=== PATIENT | female | born 1995 | race Caucasian/White ===

== ENCOUNTER 2018-01-28 16:41 | Outpatient (CLI) | payer OTHER ==
[2018-01-28 17:08] LABS: BASOPHILS % (AUTO) 0.6 %; EOSINOPHILS # (AUTO) 0.1 10^3/uL (0.0-0.7); EOSINOPHILS % (AUTO) 1.4 %; HGB - HEMOGLOBIN 14.5 g/dL (12.0-16.0); LYMPHOCYTES # (AUTO) 2.3 10^3/uL (1.5-3.5); LYMPHOCYTES % (AUTO) 32.8 %; MEAN CORPUSCULAR HEMOGLOBIN 30.4 pg (27.0-31.0); MEAN CORPUSCULAR HGB CONC 33.6 g/dL (32.0-36.0); MEAN CORPUSCULAR VOLUME 90.4 fL (81.0-99.0); MEAN PLATELET VOLUME 8.8 fL (7.9-10.8); MONOCYTES # (AUTO) 0.8 10^3/uL (0.0-1.0); MONOCYTES % (AUTO) 11.2 %; NEUTROPHILS # (AUTO) 3.9 10^3/uL (1.5-6.6); PLT - PLATELET COUNT 203 10^3/uL (130-450); RED BLOOD COUNT 4.79 10^6/uL (4.20-5.40); RED CELL DISTRIBUTION WIDTH 12.3 % (12.0-15.0); WHITE BLOOD COUNT 7.2 x10^3/uL (4.8-10.8)
[2018-01-28 17:33] LABS: ALBUMIN 4.3 g/dL (3.2-5.5); ALBUMIN/GLOBULIN RATIO 1.2 (1.0-2.2); ALKALINE PHOSPHATASE 52 IU/L (42-121); ALT ALANINE AMINOTRANSFERASE 14 IU/L (10-60); AST ASPARTATE AMINOTRANSFERASE 18 IU/L (10-42); BILIRUBIN,TOTAL 1.2 mg/dL (0.2-1.0); BUN - BLOOD UREA NITROGEN 14 mg/dL (6-20); CALCIUM 9.2 mg/dL (8.5-10.3); CARBON DIOXIDE - CO2 26 mmol/L (21-32); CHLORIDE 101 mmol/L (101-111); CREATININE 0.8 mg/dL (0.4-1.0); GFR - MDRD 89 (>89); GLUCOSE 92 mg/dL (70-100); PHOSPHORUS 3.8 mg/dL (2.5-4.6); SODIUM 134 mmol/L (135-145); TOTAL PROTEIN 7.9 g/dL (6.7-8.2)
== END 2018-01-28 16:42 | disposition home or self-care (01) ==
LOC: LAB 16:41
PROVIDERS: ATTEND Physician Assistant
DX: R00.2 Palpitations (principal)
CPT/HCPCS: 36415; 80053; 83735; 84100; 84443; 85025

== ENCOUNTER 2018-08-26 16:35 | Outpatient (CLI) | payer OTHER ==
[2018-08-26 17:05] LABS: ALBUMIN 4.3 g/dL (3.2-5.5); ALBUMIN/GLOBULIN RATIO 1.1 (1.0-2.2); CALCIUM 9.6 mg/dL (8.5-10.3); CREATININE 0.8 mg/dL (0.4-1.0); TOTAL PROTEIN 8.1 g/dL (6.7-8.2)
== END 2018-08-26 16:36 | disposition home or self-care (01) ==
LOC: LAB 16:35
PROVIDERS: ATTEND Physician Assistant
DX: Z79.899 Other long term (current) drug therapy (principal)
CPT/HCPCS: 36415; 80053

== ENCOUNTER 2018-10-07 16:44 | Outpatient (CLI) | payer OTHER ==
[2018-10-07 17:04] LABS: CALCIUM 9.7 mg/dL (8.5-10.3); CREATININE 0.8 mg/dL (0.4-1.0)
== END 2018-10-07 16:45 | disposition home or self-care (01) ==
LOC: LAB 16:44
PROVIDERS: ATTEND Physician Assistant
DX: Z79.899 Other long term (current) drug therapy (principal)
CPT/HCPCS: 36415; 80048

== ENCOUNTER 2018-10-28 13:14 | Outpatient (CLI) | payer OTHER ==
[2018-10-28 13:43] LABS: CALCIUM 9.2 mg/dL (8.5-10.3); CREATININE 0.8 mg/dL (0.4-1.0)
== END 2018-10-28 13:15 | disposition home or self-care (01) ==
LOC: LAB 13:14
PROVIDERS: ATTEND Physician Assistant
DX: Z79.899 Other long term (current) drug therapy (principal)
CPT/HCPCS: 36415; 80048

== ENCOUNTER 2019-02-11 08:00 | Outpatient (CLI) | payer OTHER ==
[2019-02-11 19:47] LABS: TRICHOMONAS VAGINALIS DNA NEGATIVE (NEGATIVE)
== END 2019-02-11 23:59 | disposition home or self-care (01) ==
LOC: LAB.R 08:00
PROVIDERS: ATTEND Nurse Practitioner Obstetrics & Gynecology
DX: Z11.3 Encounter for screening for infections with a predominantly sexual mode of transmission (principal)
CPT/HCPCS: 87491; 87591; 87661

== ENCOUNTER 2019-10-16 10:20 | Outpatient (CLI) | payer OTHER | END 2019-10-16 10:21 | disposition home or self-care (01) | LOC: COV 10:20 | PROVIDERS: ATTEND Family Medicine | DX: R05 Cough (principal); J02.9 Acute pharyngitis, unspecified; Z20.828 Contact with and (suspected) exposure to other viral communicable diseases ==

== ENCOUNTER 2020-05-04 08:00 | Outpatient (CLI) | payer OTHER ==
[2020-05-04 13:32] LABS: CALCIUM 9.3 mg/dL (8.5-10.3); CREATININE 0.8 mg/dL (0.4-1.0)
== END 2020-05-04 23:59 | disposition home or self-care (01) ==
LOC: LAB.WCP 08:00
PROVIDERS: ATTEND Nurse Practitioner Family
DX: Z79.899 Other long term (current) drug therapy (principal)
CPT/HCPCS: 36415; 80048

== ENCOUNTER 2020-05-17 16:46 | Outpatient (CLI) | payer OTHER | END 2020-05-17 16:47 | disposition home or self-care (01) | LOC: COV 16:46 | PROVIDERS: ATTEND Family Medicine | DX: R05 Cough (principal); R07.0 Pain in throat; R09.81 Nasal congestion; J34.89 Other specified disorders of nose and nasal sinuses; Z20.822 Contact with and (suspected) exposure to COVID-19 ==

== ENCOUNTER 2020-11-10 10:30 | Outpatient (CLI) | payer OTHER | END 2020-11-10 23:59 | disposition home or self-care (01) | LOC: COV 10:30 | PROVIDERS: ATTEND Family Medicine | DX: R05 Cough (principal); R53.83 Other fatigue; R07.0 Pain in throat; R43.8 Other disturbances of smell and taste; R09.81 Nasal congestion; J34.89 Other specified disorders of nose and nasal sinuses; Z20.822 Contact with and (suspected) exposure to COVID-19 ==

== ENCOUNTER 2021-01-16 08:00 | Outpatient (CLI) | payer OTHER ==
[2021-01-16 23:07] LABS: BACTERIAL VAGINOSIS DNA NEGATIVE (NEGATIVE); CANDIDA GLABRATA DNA NEGATIVE (NEGATIVE); CANDIDA GROUP DNA NEGATIVE (NEGATIVE); CANDIDA KRUSEI DNA NEGATIVE (NEGATIVE); TRICHOMONAS VAGINALIS DNA NEGATIVE (NEGATIVE)
[2021-01-17 20:32] LABS: CHLAMYDIA TRACHOMATIS DNA NEGATIVE (NEGATIVE); NEISSERIA GONORRHOEAE DNA NEGATIVE (NEGATIVE); TRICHOMONAS VAGINALIS DNA NEGATIVE (NEGATIVE)
== END 2021-01-16 08:01 | disposition home or self-care (01) ==
LOC: LAB 08:00
PROVIDERS: ATTEND Physician Assistant Medical
DX: R30.0 Dysuria (principal)
CPT/HCPCS: 87086; 87491; 87591; 87661; 87801

== ENCOUNTER 2021-04-12 09:00 | Outpatient (CLI) | payer OTHER ==
[2021-04-12 12:43] LABS: BASOPHILS # (AUTO) 0.1 10^3/uL (0.0-0.1); BASOPHILS % (AUTO) 1.1 %; EOSINOPHILS # (AUTO) 0.1 10^3/uL (0.0-0.7); EOSINOPHILS % (AUTO) 2.9 %; HCT - HEMATOCRIT 44.9 % (37.0-47.0); HGB - HEMOGLOBIN 14.8 g/dL (12.0-16.0); LYMPHOCYTES % (AUTO) 41.1 %; MEAN CORPUSCULAR HEMOGLOBIN 30.8 pg (27.0-31.0); MEAN CORPUSCULAR VOLUME 93.5 fL (81.0-99.0); MEAN PLATELET VOLUME 10.7 fL (7.9-10.8); MONOCYTES # (AUTO) 0.6 10^3/uL (0.0-1.0); MONOCYTES % (AUTO) 12.4 %; NEUTROPHILS % (AUTO) 42.3 %; PLT - PLATELET COUNT 215 10^3/uL (130-450); RED CELL DISTRIBUTION WIDTH 12.3 % (12.0-15.0); WHITE BLOOD COUNT 4.8 x10^3/uL (4.8-10.8)
[2021-04-12 12:50] LABS: BILIRUBIN,URINE NEGATIVE (NEGATIVE); GLUCOSE, URINE (UA) NEGATIVE (NEGATIVE); KETONES,URINE (UA) NEGATIVE (NEGATIVE); LEUKOCYTE ESTERASE, URINE NEGATIVE (NEGATIVE); NITRITE,URINE NEGATIVE (NEGATIVE); OCCULT BLOOD,URINE NEGATIVE (NEGATIVE); PROTEIN,URINE NEGATIVE (NEGATIVE); UROBILINOGEN,URINE 0.2 (NORMAL) E.U./dL (NORMAL)
[2021-04-12 13:09] LABS: BACTERIA,URINE None Seen /HPF (None Seen); CLARITY,URINE CLEAR (CLEAR); RBC,URINE None Seen /HPF (0-5); SQUAMOUS EPITHELIAL CELL,UR RARE Squamous (<= Few); WBC,URINE 0-3 /HPF (0-5)
[2021-04-12 13:11] LABS: THYROID STIMULATING HORMONE 3.41 uIU/mL (0.34-5.60)
[2021-04-12 13:14] LABS: ALBUMIN/GLOBULIN RATIO 1.1 (1.0-2.2); BILIRUBIN,TOTAL 1.6 mg/dL (0.2-1.0); CALCIUM 9.5 mg/dL (8.5-10.3); CREATININE 0.8 mg/dL (0.4-1.0); POTASSIUM 3.9 mmol/L (3.5-5.0); TOTAL PROTEIN 7.8 g/dL (6.7-8.2)
== END 2021-04-12 23:59 | disposition home or self-care (01) ==
LOC: LAB.WCP 09:00
PROVIDERS: ATTEND Physician Assistant
DX: Z00.00 Encounter for general adult medical examination without abnormal findings (principal); R10.12 Left upper quadrant pain
CPT/HCPCS: 36415; 80053; 81001; 82150; 83690; 84443; 85025; 87086

== ENCOUNTER 2023-05-16 16:51 | Outpatient (CLI) | payer OTHER ==
[2023-05-16 17:36] LABS: BASOPHILS % (AUTO) 0.3 %; EOSINOPHILS # (AUTO) 0.1 10^3/uL (0.0-0.7); EOSINOPHILS % (AUTO) 1.1 %; HCT - HEMATOCRIT 41.3 % (37.0-47.0); HGB - HEMOGLOBIN 13.7 g/dL (12.0-16.0); LYMPHOCYTES # (AUTO) 2.2 10^3/uL (1.5-3.5); LYMPHOCYTES % (AUTO) 24.5 %; MEAN CORPUSCULAR HEMOGLOBIN 30.3 pg (27.0-31.0); MEAN CORPUSCULAR HGB CONC 33.2 g/dL (32.0-36.0); MEAN CORPUSCULAR VOLUME 91.4 fL (81.0-99.0); MEAN PLATELET VOLUME 10.2 fL (7.9-10.8); MONOCYTES # (AUTO) 0.8 10^3/uL (0.0-1.0); MONOCYTES % (AUTO) 8.9 %; NEUTROPHILS # (AUTO) 5.8 10^3/uL (1.5-6.6); NEUTROPHILS % (AUTO) 64.9 %; PLT - PLATELET COUNT 236 10^3/uL (130-450); RED BLOOD COUNT 4.52 10^6/uL (4.20-5.40); RED CELL DISTRIBUTION WIDTH 12.6 % (12.0-15.0); WHITE BLOOD COUNT 8.9 x10^3/uL (4.8-10.8)
[2023-05-16 22:20] LABS: ESTIMATED AVERAGE GLUCOSE 94 mg/dL (70-100); HEMOGLOBIN A1c% 4.9 % (4.27-6.07)
[2023-05-18 04:10] LABS: HBsAG SCREEN Negative (Negative); RPR Non Reactive (Non Reactive)
[2023-05-18 12:09] LABS: VARICELLA-ZOSTER AB IGG 947 index (Immune >165)
[2023-05-19 08:08] LABS: HCV AB Non Reactive (Non Reactive)
[2023-05-19 10:07] LABS: HIV SCREEN 4TH GENERATION Non Reactive (Non Reactive)
== END 2023-05-16 16:52 | disposition home or self-care (01) ==
LOC: LAB 16:51
PROVIDERS: ATTEND Nurse Practitioner Obstetrics & Gynecology
DX: Z36.89 Encounter for other specified antenatal screening (principal); Z83.3 Family history of diabetes mellitus
CPT/HCPCS: 36415; 83036; 85025; 86592; 86762; 86787; 86803; 86850; 86900; 86901; 87340; 87389

== ENCOUNTER 2023-08-05 08:13 | Outpatient (CLI) | payer OTHER ==
--- NOTE | 2023-08-05 10:59 | Ultrasound Report ---
PROCEDURE: OB Anatomy Scan INDICATIONS: SUPERVISION OF OUTSIDE/PRIOR DATING DATA: Last menstrual period (LMP): 03/12/2023. LMP-based estimated date of delivery (BECKY): 12/17/2023. First dating scan (date and location): 05/15/2023. Estimated date of delivery (BECKY) from first dating scan: 12/22/2023. The below data below was generated using the first trimester outside ultrasound BECKY of 12/17/2023 TECHNIQUE: Real-time scanning was performed of the fetus, with image documentation and biometric measurements. Endovaginal scanning: Not performed. COMPARISON: None. Correlation made to the provided outside chart data dated 05/15/2023. FINDINGS: General: A single living intrauterine gestation is present. Presentation: Breech Placenta: Placental position is anterior and low lying with the average measuring 1.4 cm from the in ternal cervical os.. There is a prominent placental gillespie measuring 4.6 x 1.6 x 2.7 cm. Amniotic fluid index: 12.7 cm, deepest pocket is 5.5 cm within normal limits for gestational age. heart rate: 138 beats per minute. Maternal cervical canal: Closed and 3.9 cm long; normal length is 2.5 cm or more. biometrics: Biparietal diameter: 4.8 cm, 20 weeks 3 days, 33rd percentile Head circumference: 17.8 cm, 20 weeks 2 days, 16th percentile Abdominal circumference: 14.7 cm, 20 weeks 0 days, 18th percentile Femur length: 3.5 cm, 20 weeks 6 days, 41st percentile Estimated gestational age from initial scan: 20 weeks 6 days Composite gestational age from present scan: 20 weeks 3 days Estimated weight and percentile: 350 g, 22nd percentile Measurement variability in biometric dating: +/- 10 days from 12-20 weeks gestation, +/- 2 weeks from 20-30 weeks gestation, +/- 3 weeks at 30 weeks gestation or later. Anatomic survey: Neuro: Ventricles are normal at less than 10 mm. Cisterna magna is normal at 3-11 mm. Cerebellum i s normal in size and morphology. Nuchal skin fold: Normal at less than 6 mm between 14 and 20 weeks gestational age. Face: Nose and lips, facial profile are normal. Spine: No evidence for spina bifida. Heart: 4-chambered heart is present, with normal ventricular outflow tracts. Diaphragm: Diaphragm is intact. Stomach: Left-sided stomach is present. Kidneys: No hydronephrosis. Normal is less than 5 mm in 2nd trimester, less than 7 mm in 3rd trimester. Cord: 3 vessel cord has orthotopic insertion. Bladder: Normal in size. Extremities: All 4 extremities are visualized. IMPRESSION: Single live intrauterine with appropriate and symmetric growth. Estimated weight at the 22nd percentile. Normal anatomy. Anterior low-lying placenta with a prominent placental gillespie. Recommend follow-up in early third trime ster. Closed cervix and normal amniotic fluid volume. Reviewed by: Heydi Mendoza MD on 08/05/2023 10:58 AM PDT Approved by: Heydi Mendoza MD on 08/05/2023 10:58 AM PDT Station ID: [id number]
== END 2023-08-05 08:14 | disposition home or self-care (01) ==
LOC: DI 08:13
PROVIDERS: ATTEND Nurse Practitioner Obstetrics & Gynecology
DX: O44.42 Low lying placenta NOS or without hemorrhage, second trimester (principal); Z3A.20 20 weeks gestation of pregnancy; Z36.89 Encounter for other specified antenatal screening

== ENCOUNTER 2023-09-10 07:02 | Outpatient (CLI) | payer OTHER ==
[2023-09-10 08:09] LABS: BASOPHILS % (AUTO) 0.4 %; EOSINOPHILS # (AUTO) 0.1 10^3/uL (0.0-0.7); EOSINOPHILS % (AUTO) 1.1 %; HCT - HEMATOCRIT 37.1 % (37.0-47.0); HGB - HEMOGLOBIN 12.1 g/dL (12.0-16.0); LYMPHOCYTES # (AUTO) 1.3 10^3/uL (1.5-3.5); LYMPHOCYTES % (AUTO) 15.9 %; MEAN CORPUSCULAR HGB CONC 32.6 g/dL (32.0-36.0); MEAN CORPUSCULAR VOLUME 95.1 fL (81.0-99.0); MEAN PLATELET VOLUME 9.9 fL (7.9-10.8); MONOCYTES # (AUTO) 0.6 10^3/uL (0.0-1.0); MONOCYTES % (AUTO) 7.2 %; NEUTROPHILS # (AUTO) 6.1 10^3/uL (1.5-6.6); NEUTROPHILS % (AUTO) 74.4 %; PLT - PLATELET COUNT 196 10^3/uL (130-450); RED CELL DISTRIBUTION WIDTH 13.7 % (12.0-15.0); WHITE BLOOD COUNT 8.2 x10^3/uL (4.8-10.8)
== END 2023-09-10 07:03 | disposition home or self-care (01) ==
LOC: LAB 07:02
DX: Z36.9 Encounter for antenatal screening, unspecified (principal)
CPT/HCPCS: 36415; 82950; 85025

== ENCOUNTER 2023-10-30 19:48 | Outpatient (CLI) | payer OTHER ==
--- NOTE | 2023-10-31 11:06 | Ultrasound Report ---
PROCEDURE: OB Follow up INDICATIONS: MULTIPLE PLECENTA YAÑEZ OUTSIDE/PRIOR DATING DATA: Last menstrual period (LMP): 03/12/2023. LMP-based estimated date of delivery (BECKY): 12/17/2023. First dating scan (date and location): 05/15/2023. Estimated date of delivery (BECKY) from first dating scan: 12/22/2023. The below data below was generated using the clinical BECKY of 12/17/2023 TECHNIQUE: Real-time scanning was performed of the fetus, with image documentation and biometric measurements. Endovaginal scanning: Not performed COMPARISON: 08/05/2023 FINDINGS: General: A single living intrauterine gestation is present. Presentation: Vertex Placenta: Placental position is anterior, without previa. Redemonstration of placental yañez measuri ng 2.2 x 1.3 x 1.7 cm, previously 4.6 x 1.6 x 2.7 cm. Previous low lying placenta has resolved. Amniotic fluid index: 19.2 cm, within normal limits for gestational age. heart rate: 131 beats per minute. Maternal cervical canal: Not imaged biometrics: Biparietal diameter: 8.4 cm, 34 weeks 0 days, 68% Head circumference: 31 cm, 34 weeks 5 days, 53% Abdominal circumference: 28.1 cm, 32 weeks 1 day, 22% Femur length: 6.5 cm, 33 weeks 6 days, 49% Estimated gestational age from initial scan: 33 weeks 1 day Composite gestational age from present scan: 33 weeks 4 days Estimated weight and percentile: 2086 g, 35% Measurement variability in biometric dating: +/- 10 days from 12-20 weeks gestation, +/- 2 weeks from 20-30 weeks gestation, +/- 3 weeks at 30 weeks gestation or more. Other: Not applicable. IMPRESSION: 1.Single live intrauterine consistent with 33 weeks and 4 days. 2.Placental yañez has decreased in size as above. 3.Previous low-lying placenta has resolved. Reviewed by: Phu Peck MD on 10/31/2023 11:05 AM PDT Approved by: Phu Peck MD on 10/31/2023 11:05 AM PDT Station ID: [id number]
== END 2023-10-30 19:49 | disposition home or self-care (01) ==
LOC: DI 19:48
PROVIDERS: ATTEND Nurse Practitioner Obstetrics & Gynecology
DX: O44.43 Low lying placenta NOS or without hemorrhage, third trimester (principal); O43.893 Other placental disorders, third trimester; Z3A.33 33 weeks gestation of pregnancy

== ENCOUNTER 2023-11-26 08:00 | Outpatient (CLI) | payer OTHER ==
[2023-11-26 17:29] LABS: BILIRUBIN,URINE NEGATIVE (NEGATIVE); GLUCOSE, URINE (UA) NEGATIVE (NEGATIVE); KETONES,URINE (UA) NEGATIVE (NEGATIVE); LEUKOCYTE ESTERASE, URINE NEGATIVE (NEGATIVE); NITRITE,URINE NEGATIVE (NEGATIVE); OCCULT BLOOD,URINE NEGATIVE (NEGATIVE); PROTEIN,URINE NEGATIVE (NEGATIVE); UROBILINOGEN,URINE 0.2 (NORMAL) E.U./dL (NORMAL)
[2023-11-26 17:34] LABS: CLARITY,URINE CLEAR (CLEAR)
[2023-11-26 17:51] LABS: BACTERIA,URINE Few /HPF (None Seen); RBC,URINE 0-5 /HPF (0-5); SQUAMOUS EPITHELIAL CELL,UR FEW Squamous (<= Few); WBC,URINE 0-3 /HPF (0-5)
== END 2023-11-26 08:01 | disposition home or self-care (01) ==
LOC: LAB.WC 08:00
PROVIDERS: ATTEND Nurse Practitioner
DX: R10.2 Pelvic and perineal pain (principal)
CPT/HCPCS: 81001; 87086

== ENCOUNTER 2023-12-06 08:00 | Outpatient (CLI) | payer OTHER ==
[2023-12-06 21:03] LABS: BACTERIAL VAGINOSIS DNA NEGATIVE (NEGATIVE); CANDIDA GLABRATA DNA NEGATIVE (NEGATIVE); CANDIDA GROUP DNA POSITIVE (NEGATIVE); CANDIDA KRUSEI DNA NEGATIVE (NEGATIVE); TRICHOMONAS VAGINALIS DNA NEGATIVE (NEGATIVE)
== END 2023-12-06 23:59 | disposition home or self-care (01) ==
LOC: LAB.WC 08:00
PROVIDERS: ATTEND Nurse Practitioner Obstetrics & Gynecology
DX: N76.0 Acute vaginitis (principal)
CPT/HCPCS: 81514

== ENCOUNTER 2023-12-11 23:15 | Inpatient (IN) | payer OTHER ==
[2023-12-12] MEDS ORDERED: NIFEdipine 10 MG CAPSULE PO PRN (00:04)
[2023-12-12] MEDS ORDERED: SODIUM CHLORIDE FLUSH 0.9% 10 ML SYRINGE IVP PRN (00:04)
[2023-12-12] MEDS ORDERED: LABETALOL 20 MG/4 ML SYRINGE IVP PRN ×3 (00:04)
[2023-12-12] MEDS ORDERED: TERBUTALINE 1 MG/ML VIAL SUBQ PRN (00:04)
[2023-12-12] MEDS ORDERED: TRANEXAMIC ACID IN NACL 1,000 MG/100 ML BAG IV PRN (00:04)
[2023-12-12] MEDS ORDERED: hydrALAZINE INJ 20 MG/ML VIAL IVP PRN ×2 (00:04)
[2023-12-12] MEDS ORDERED: lidocaine 1% 20 ML MDV ID PRN (00:04)
[2023-12-12] MEDS ORDERED: CARBOPROST TROMETHAMINE 250 MCG/ML VIAL IM PRN (00:04)
[2023-12-12] MEDS ORDERED: miSOPROStoL 200 MCG TABLET PR PRN (00:04)
[2023-12-12] MEDS ORDERED: OXYTOCIN/SODIUM CHLORIDE 500 ML IV PRN (00:04)
[2023-12-12] MEDS ORDERED: miSOPROStoL 200 MCG TABLET BC PRN (00:04)
[2023-12-12] MEDS ORDERED: METHYLERGONOVINE 0.2 MG/ML VIAL IM PRN (00:04)
[2023-12-12] MEDS ORDERED: OXYTOCIN 10 UNIT/ML VIAL IM PRN (00:04)
[2023-12-12] MEDS ORDERED: AMPICILLIN 2 GM VIAL IV ONE (00:16)
[2023-12-12] MEDS ORDERED: LACTATED RINGERS 1,000 ML ONE (00:18)
[2023-12-12] MEDS: AMPICILLIN 2 GM in SODIUM CHLORIDE 0.9% MINIBAG 100 ML IV ONE (00:29)
--- NOTE | 2023-12-12 00:31 | HISTORY & PHYSICAL EXAMINATION ---
Admit History - Visit Reason Visit Reason: Membranes rupture - : 1 Parity: 0 Premature: 0 Ectopic: 0 : 0 Risk/History: positive: None Complications This : positive: None Smoking Status: Never smoker - Mother's Labs Mother's Blood Type: positive: O Mother's RH: positive: Positive GBS: positive: Group B Strep Positive Rubella Status: positive: Immune - HPI Diagnosis/Indication for NST: Other - NST Procedure FHR baseline 120s, moderate variability, + accels, no decels Contractions palpate mild every 2-5 minutes with soft resting tone Meds/Allgy - Allergies Allergies/Adverse Reactions: Allergies Allergy/AdvReac Type Severity Reaction Status Date / Time No Known Drug Allergies Allergy Verified 12/12/23 00:04 Review of Systems - Constitutional Constitutional: denies: Fatigue, Fever, Chills, Malaise - Eyes Eyes: denies: Blurred vision, Spots in vision, Dipolpia - Cardiovascular Cariovascular: denies: Irregular heart rate, Palpitations, Chest pain, Edema - Respiratory Respiratory: denies: Cough, Wheezing, SOB at rest - Gastrointestinal Gastrointestinal: denies: Constipation, Diarrhea, Nausea, Vomiting - Genitourinary Genitourinary: denies: Dysuria - Musculoskeletal Musculoskeletal: denies: Back pain - Integumentary Integumentary: denies: Rash, Pruritis - Neurological Neurological: denies: Headache - Psychiatric Psychiatric: denies: Depression, Anxiety - All Other Systems All Other Systems: reports: Reviewed and negative Physical - Abdominal Exam Contraction Frequency (min/apart): 2-5 Contraction Intensity: positive: Mild Uterine Resting Tone: positive: Soft - Monitoring Heart Rate Baseline: 120 Strip Review: positive: Category I - Presentation Presentation: positive: Vertex - Vaginal Exam Membranes: positive: Membranes ruptured Dilation (in cm): fingertip Effacement (%): 70 Station: positive: -2 Cervical Position: positive: Midposition - Speculum Exam Speculum Exam Performed: positive: No Findings: positive: Gross leak Plan for Labor - Plan For Labor I expect patient to be DC'd or transferred within 96 hours.: Yes Plan for Labor: HPI: Lorie is a 28yo @ 39.1wks gestation by LMP c/w 8.3wk U/S who presents to [facility] with spontaneous rupture of membranes at 2220 which she noted to be a moderate amount of clear fluid. Upon arrival she was noted to have grossly ruptured membranes and SVE was fingertip/70/-2 and vertex. FHR demonstrates a Category I pattern. She has been a patient of [facility] for the duration of her until her transfer of care to [facility] at 37wks gestation. She has received adequate care for the duration of her which was complicated briefly by a low lying placenta that resolved at the time of her follow up ultrasound. She is also noted to be GBS positive. She will be admitted to [facility] for expectant management. She is supported by her Olivier. Dating criteria: LMP: 03/12/2024 BECKY by LMP: 12/17/2023 Initial U/S @ 8.3wks c/w LMP dating Serial exams - agree OB Hx: G1: Current Medical Hx: no significant Surgical Hx: none Social Hx: Monogamous with male partner. No alcohol use. Never smoker. Denies marijuana or other recreational drug use. Reports she feels safe in her current relationship. Family Hx: Denies family hx of congenital anomalies, cystic fibrosis, or chromosomal abnormalities. Ovarian cancer - PGM; Colon cancer - PGF; Diabetes - father, maternal uncles Allergies: NKDA Medications: PNV course: Initial U/S @ 8.3wks c/w LMP dating O positive, antibody negative Rubella immune, varicella immune HIV non-reactive, RPR non-reactive Hep B neg, Hep C neg Hgb A1C 4.9 GC/CT negative FAS WNL. Anterior placenta, no previa however low lying measuring 1.4cm from cervical os. Placental gillespie noted measures 4.6 x 1.6 x 2.7 cm. Otherwise normal anatomy. 3VC. [place] WNL. Size c/w dating (EFW 22%tile). F/u ultrasound - low lying placenta RESOLVED. EFW to monitor growth secondary to placenta gillespie WNL with EFW 35%tile. Placental gillespie has decreased in size and measures 2.2 x 1.3 x 1.7 cm. COVID vaccine x 4 Tdap vaccine - received 1hr Glucola 113 GBS POSITIVE Physical exam: Normocephalic, atraumatic Heart RRR w/o M/G/R Lungs CTAB Abdomen gravid, soft, nontender EFW 3200g FHR baseline 120s, moderate variability, +accels, no decels Contractions palpate mild every 2-5 minutes with soft resting tone SVE fingertip/70/-2, vertex. Midposition, soft. SROM x 2.5hrs - clear fluid, afebrile Bilateral LE's no edema Mood is good Assessment: 28yo @ 39.1wks gestation by LMP c/w 8.3wk U/S Early labor SROM x 2.5hrs GBS POSITIVE FHR Category I Plan: Admit to [facility] for expectant management. Initial Ampicillin for GBS prophylaxis per protocol. Intermittent heart rate auscultation. Encouraged ambulation and position changes when awake however also discussed importance of rest in early labor if possible. If contractions do not increase in frequency and intensity by 0400, plan initiation of misoprostol for cervical ripening. Otherwise plan repeat SVE at 1000 or sooner if clinically indicated. Jacuzzi PRN. Nitrous oxide PRN. Epidural per maternal request. Anticipate .
[2023-12-12] MEDS: AMPICILLIN 1 GM in SODIUM CHLORIDE 0.9% MINIBAG 100 ML IV SCH (04:56)
[2023-12-12 07:34] LABS: BASOPHILS % (AUTO) 0.3 %; EOSINOPHILS # (AUTO) 0.1 10^3/uL (0.0-0.7); HCT - HEMATOCRIT 40.3 % (37.0-47.0); HGB - HEMOGLOBIN 13.4 g/dL (12.0-16.0); LYMPHOCYTES # (AUTO) 2.5 10^3/uL (1.5-3.5); LYMPHOCYTES % (AUTO) 20.5 %; MEAN CORPUSCULAR HEMOGLOBIN 31.3 pg (27.0-31.0); MEAN CORPUSCULAR HGB CONC 33.3 g/dL (32.0-36.0); MEAN CORPUSCULAR VOLUME 94.2 fL (81.0-99.0); MEAN PLATELET VOLUME 11.1 fL (7.9-10.8); MONOCYTES # (AUTO) 1.1 10^3/uL (0.0-1.0); MONOCYTES % (AUTO) 9.5 %; NEUTROPHILS # (AUTO) 8.2 10^3/uL (1.5-6.6); NEUTROPHILS % (AUTO) 67.5 %; PLT - PLATELET COUNT 249 10^3/uL (130-450); RED BLOOD COUNT 4.28 10^6/uL (4.20-5.40); RED CELL DISTRIBUTION WIDTH 13.8 % (12.0-15.0); WHITE BLOOD COUNT 12.1 x10^3/uL (4.8-10.8)
[2023-12-12] MEDS: LACTATED RINGERS 1,000 ML IV PRN (09:15)
[2023-12-12] MEDS: fentaNYL 100 MCG/2 ML VIAL IVP PRN (09:16)
--- NOTE | 2023-12-12 09:50 | PROVIDER PROGRESS NOTE ---
Labor Progress Note - Uterine Monitoring Uterine Monitoring Mode: positive: External toco Contraction Frequency (min/apart): 3-6 Contraction Intensity: positive: Moderate to strong Uterine Resting Tone: positive: Soft - Monitoring Monitor Mode: positive: External ultrasound Heart Rate Baseline: 140 Heart Rate Variability: positive: Moderate (6-25 bmp) Accelerations: positive: Present, 15x15 Decelerations: positive: None Strip Review: positive: Category I - Vaginal Exam Dilation (in cm): 3 Effacement (%): 80 Station: -1 Cervical Position: Midposition - Labor Progress Note Labor Progress Note/Additional Text: S: Breathing through contractions. Intermittently tearful. Feeling slightly discouraged by her lack of progress. occasionally feeling pressure with contractions. Her family and are support at the bedside. O: FHR baseline 140s, moderate variability, + accels, no decels Contractions palpate moderate to strong every 3-6 minuites with soft resting tone SVE 3/80/-1, vertex SROM x 11hrs s/p 3 doses of ampicillin for GBS prophylaxis per protocol A: 28yo @ 40.1wks gestation by LMP c/w 8.3wk U/S Active labor GBS positive FHR category I P: Continue expectant management. Continue ampicillin for GBS prophylaxis per protocol. Fentanyl via IV for pain management per pt request x 1 Continuous monitoring. Nitrous oxide PRN. Jacuzzi PRN. Epidural per maternal request. Anticipate .
[2023-12-12] MEDS ORDERED: ROPIVACAINE 0.2% 200 MG/100 ML BAG EP ONE (11:43)
[2023-12-12] MEDS ORDERED: LIDOCAINE 2%-EPI 1:100000 20 ML MDV ONE (11:43)
[2023-12-12] MEDS ORDERED: NALBUPHINE 10 MG/ML AMP IVP PRN (12:45)
[2023-12-12] MEDS ORDERED: METOCLOPRAMIDE 10 MG/2 ML VIAL IVP PRN (12:45)
[2023-12-12] MEDS ORDERED: ePHEDrine 50 MG/ML VIAL IVP PRN (12:45)
[2023-12-12] MEDS ORDERED: NALOXONE 0.4 MG/ML VIAL IVP PRN (12:45)
[2023-12-12] MEDS ORDERED: ONDANSETRON 4 MG/2 ML VIAL IVP PRN (12:45)
--- NOTE | 2023-12-12 12:45 | ANESTHESIA ---
Pre-Anesthesia VS, & Labs - Diagnosis , 39.1 weeks desires epidural - Procedure placement of labor epidural Vital Signs: Temp Pulse Resp BP Pulse Ox O2 Flow Rate 36.4 C L 83 18 125/72 98 12/12/23 03:00 12/12/23 03:00 12/12/23 03:00 12/12/23 03:00 12/12/23 03:00 Height: 5 ft 11 in Weight (kg): 93.44 kg Body Mass Index: 28.7 BMI Classification: Overweight - NPO Last Fluid Intake: clears after epidural - Is Patient ?: Yes - Lab Results Current Lab Results: Laboratory Tests 12/12/23 00:30: WBC 12.1 H, RBC 4.28, Hgb 13.4, Hct 40.3, MCV 94.2, MCH 31.3 H, MCHC 33.3, RDW 13.8, Plt Count 249, MPV 11.1 H, Neut # (Auto) 8.2 H, Lymph # (Auto) 2.5, Alpine # (Auto) 1.1 H, Eos # (Auto) 0.1, Baso # (Auto) 0.0, Absolute Nucleated RBC 0.00, Nucleated RBC % 0.0 12/12/23 00:30: Blood Type O POSITIVE, Antibody Screen NEGATIVE Lab results reviewed: Yes Fish Bones: 12/12/23 00:30 Home Medications and Allergies Home Medications: Ambulatory Orders No Known Home Medications 12/12/23 Active Medications Carboprost Tromethamine (Carboprost Tromethamine 250 Mcg/Ml Vial) 250 mcg IM .ONCE PRN PRN Reason: Hemorrhage Fentanyl (Fentanyl 100 Mcg/2 Ml Vial) 50 mcg IVP Q1H PRN PRN Reason: Severe Pain (score 7-10) Last Admin: 12/12/23 09:16 Dose: 50 mcg Hydralazine HCl (Hydralazine Inj 20 Mg/Ml Vial) 5 - 10 mg IVP Q20M PRN; Protocol PRN Reason: SBP> or= 160 OR DBP> or= 110 Hydralazine HCl (Hydralazine Inj 20 Mg/Ml Vial) 10 mg IVP .ONCE PRN; Protocol PRN Reason: SBP> or= 160 OR DBP> or= 110 Lactated Ringer's (Lr) 500 mls @ 999 mls/hr IV PRN PRN PRN Reason: hypotension/ bradycardia Last Admin: 12/12/23 11:41 Dose: 300 mls/hr Oxytocin/Sodium Chloride (Pitocin/Sodium Chloride) 500 mls @ 999 mls/hr IV PRN PRN; Protocol PRN Reason: POST- HEMORR PREVENTION Tranexamic Acid (Tranexamic 1,000 Mg/100ml-Nacl) 1,000 mg in 100 mls @ 600 mls/hr IV Q30M PRN PRN Reason: EBL >1200mL and within 3hr Ampicillin Sodium 1 gm/ Sodium (Chloride) 100 mls @ 200 mls/hr IV Q4H LOUISA Last Infusion: 12/12/23 09:13 Dose: Infused Labetalol HCl (Labetalol 20 Mg/4 Ml Syringe) 20 - 80 mg IVP Q10M PRN; Protocol PRN Reason: SBP> or= 160 OR DBP> or= 110 Labetalol HCl (Labetalol 20 Mg/4 Ml Syringe) 20 mg IVP .ONCE PRN; Protocol PRN Reason: SBP> or= 160 OR DBP> or= 110 Labetalol HCl (Labetalol 20 Mg/4 Ml Syringe) 20 - 40 mg IVP Q10M PRN; Protocol PRN Reason: SBP> or= 160 OR DBP> or= 110 Lidocaine HCl (Lidocaine 1% 20 Ml Mdv) 20 ml ID .ONCE PRN PRN Reason: PERINEAL REPAIR Stop: 12/15/23 00:04 Methylergonovine Maleate (Methylergonovine 0.2 Mg/Ml Vial) 0.2 mg IM .ONCE PRN PRN Reason: Hemorrhage Misoprostol (Misoprostol 200 Mcg Tablet) 600 mcg BC .ONCE PRN PRN Reason: Hemorrhage Misoprostol (Misoprostol 200 Mcg Tablet) 800 mcg CO .ONCE PRN PRN Reason: Hemorrhage Nifedipine (Nifedipine 10 Mg Capsule) 10 - 20 mg PO Q20M PRN; Protocol PRN Reason: SBP> or= 160 OR DBP> or= 110 Oxytocin (Oxytocin 10 Unit/Ml Vial) 10 unit IM .ONCE PRN PRN Reason: Step One if no IV access. Sodium Chloride (Sodium Chloride Flush 0.9% 10 Ml Syringe) 10 ml IVP PRN PRN PRN Reason: NEEDED PER PROVIDER ORDERS Terbutaline Sulfate (Terbutaline 1 Mg/Ml Vial) 0.25 mg SUBQ .ONCE PRN PRN Reason: Tachystole No Known Home Medications 12/12/23 Allergies/Adverse Reactions: Allergies Allergy/AdvReac Type Severity Reaction Status Date / Time No Known Drug Allergies Allergy Verified 12/12/23 00:04 Anes History & Medical History - Anesthetic History Anesthesia Complications: reports: No previous complications Family history of Anesthesia Complications: Denies - Medical History Cardiovascular: reports: None Pulmonary: reports: None Gastrointestinal: reports: None Urinary: reports: None Smoking Status: Never smoker Psychosocial: reports: No issues indicated - Obstetrical History : 1 Parity: 0 Events: reports: None Complications: reports: None Exam General: Alert, Oriented x3, Moderate distress Dental: WNL Mouth Openin Fingerbreadth Neck Mobility: Normal Mallampati classification: II Thyromental Distance: 4-6 cm Plan Anesthesia Type: Epidural Consent for Procedure(s) Verified and Reviewed: Yes Code Status: Attempt Resuscitation ASA classification: 1-Healthy patient Is this case an emergency?: No
[2023-12-12] MEDS ORDERED: diphenhydrAMINE INJ 50 MG/ML VIAL IVP PRN (13:54)
--- NOTE | 2023-12-12 13:56 | PROVIDER PROGRESS NOTE ---
Labor Progress Note - Uterine Monitoring Uterine Monitoring Mode: positive: External toco Contraction Frequency (min/apart): 2-5 Contraction Intensity: positive: Moderate Uterine Resting Tone: positive: Soft - Monitoring Monitor Mode: positive: External ultrasound Heart Rate Baseline: 140 Heart Rate Variability: positive: Moderate (6-25 bmp) Accelerations: positive: Present, 15x15 Decelerations: positive: None Strip Review: positive: Category I - Vaginal Exam Dilation (in cm): 5 Effacement (%): 90 Station: 0 Cervical Position: Midposition - Labor Progress Note Labor Progress Note/Additional Text: S: Patient comfortable with epidural. She is attempting to sleep. Her is sleeping at the bedside. Her mom and dad are both supportive at the bedside. O: FHR baseline 140s, moderate variability, + accels, no decels Contractions palpate moderate every 2-5 minutes with soft resting tone SVE 5/90/0 and vertex. Mild cervical edema noted. SROM x 16hrs s/p 4 doses of ampicillin for GBS prophylaxis per protocol A: 28yo @ 39.2wks gestation by LMP c/w 8.3wk U/S Active labor GBS positive FHR Category I P: Benadryl IV 25mg x once for mild cervical edema. Continuous monitoring Maintain epidural for pain management. Encouraged position changes in bed on peanut ball. Repeat SVE in 4 hours and initiate pitocin at that time if SVE unchanged. Anticipate .
[2023-12-12] MEDS: diphenhydrAMINE INJ 50 MG/ML VIAL IVP PRN (13:58)
[2023-12-12] MEDS: OXYTOCIN/SODIUM CHLORIDE 500 ML IV SCH (17:51)
[2023-12-12] MEDS: ROPIVACAINE 0.2% 200 MG/100 ML BAG EP PRN (18:25)
[2023-12-12] MEDS ORDERED: WITCH HAZEL/GLYCERIN 1 PAD TOP PRN (22:44)
[2023-12-12] MEDS ORDERED: HYDROCORTISONE 1% CREAM 28 GM TUBE PR PRN (22:44)
--- NOTE | 2023-12-12 23:15 | DELIVERY NOTE ---
Delivery Note - Labor Labor: positive: Spontaneous, Augmented by oxytocin - Delivery Method Delivery Method: positive: Spontaneous vaginal delivery - Presentation Presentation: positive: Vertex, JOSE - right occiput anterior - Nuchal Cord Nuchal Cord: positive: Present - Amniotic Fluid Description Amniotic Fluid Description: positive: Clear - Episiotomy Type Episiotomy Type: positive: None - Laceration Laceration: positive: 2nd degree, Perineal - Suture Suture Type: positive: Vicryl Suture Size: positive: 2-0, 4-0 - Delivery Outcome Delivery Outcome: positive: Livebirth - : positive: Placed in direct skin contact with mother, Stimulated, Warmed, [place] used sex: positive: Male - Cord Cord: positive: 3 vessels - Placenta Placenta: positive: Intact, Spontaneous - Estimated Blood Loss Estimated Blood Loss (in cc): 350 - Post Delivery Events Post Delivery Events: positive: No post delivery events - Delivery Comments (Free Text/Narrative) Delivery Comments (Free Text/Narrative): Labor: This 28yo @ 39.2wks gestation by LMP c/w 8.3wk U/S presented to [facility] on 12/11/2023 in early labor with grossly ruptured membranes that occured at 2200. At that time SVE was fingertip/70/-2 and vertex. FHR pattern demonstrated a Category I pattern with intermittent periods of Category II pattern however overall remained reassuring. She received 7 total doses of antibiotics for GBS prophylaxis per protocol for adequate treatment. Epidural placed per maternal request. Pitocin initiated for augmentation of labor with a maximum infusion rate of 4mU/mL. Pt progressed to c/c/+1 at 2049 with onset of active pushing at 2111. : Normal SVB of viable male on 12/12/2023 @ 2129. Nuchal cord x 1 was delivered through. The was placed on maternal abdomen, stimulated, dried, and placed skin to skin. 's were 7/8 at 1 and 5 minutes respectively. The umbilical cord was allowed to stop pulsating at which time it was doubly clamped by CNM and cut by FOB. 3VC. Cord blood was obtained. Fundal massage and gentle cord traction applied for active management of the third stage. Pitocin initiated via IV for hemostasis. Placenta delivered spontaneously and intact @ 2144. EBL 350 mL. Fourth stage: Uterine fundus firm and there is no excessive bleeding. The perineum, vagina, and cervix were inspected and found to have a 2nd degree perineal laceration which was repaired using a 2-[address]-1 needle in standard fashion and under sterile conditions. In addition there was a minor left periurethral laceration which was repaired using a 4-0 vicryl on an SH needle in standard fashion and under sterile conditions. Vaginal and rectal examinations were done following repair were done. Tissues well approximated. initiated. Family bonding well. Both mother and baby were left in stable condition.
[2023-12-13] MEDS: IBUPROFEN 800 MG TABLET PO SCH ×2 (00:04→14:29)
[2023-12-13] MEDS: ACETAMINOPHEN 500 MG TABLET PO SCH (06:32)
[2023-12-13] MEDS: DOCUSATE SODIUM 100 MG CAPSULE PO SCH (08:59)
--- NOTE | 2023-12-13 09:41 | PROVIDER PROGRESS NOTE ---
Subjective - Subjective Subjective: S: Bonding well with baby. without difficulty. Her pain is well controlled with oral medications. She is with some difficulty getting baby to latch but used the nipple shield overnight which helped. Bleeding is decreased and is light. Her pain is well controlled with oral medications. Her is supportive at the bedside. O: Vital signs WNL. Heart RRR w/o M/G/R ,lungs CTAB, abdomen soft and nontender. Fundus firm at U. Perineum intact, repair with mild edema, light lochia rubra. Bilateral LE's trace edema. Mood is good. A: 28yo -->P1 PPD#1 Normal recovery P: Continue routine care and medications. Work closely with nursing team on today. Evaluate for discharge home tomorrow. Objective - Vital Signs/Intake & Output Vital Signs: Vital Signs x48h Temp Pulse Resp BP Pulse Ox 12/13/23 09:06 97.7 C H 81 17 130/60 12/13/23 05:00 37.0 C 64 16 126/69 98 Intake & Output: Intake & Output 12/10/23 12/11/23 12/12/23 12/13/23 23:59 23:59 23:59 23:59 Intake Total 1588.600 Output Total 2700 Balance -1111.400 - Lab Results Fish Bones: 12/12/23 00:30
--- NOTE | 2023-12-13 11:11 | PHARMACY PROGRESS NOTE ---
- Best Possible Medication History Admit Date and Time: 12/11/23 0014 Processed by: Pharmacy Medications reviewed in ED?: No Medication History completed: Yes Patient Interview: Pt unable to participate (HAD BABY AND HOPEFULLY DISCHARGING SOON PER NOTES) Secondary Source(s): Physician records, Insurance records As the person ultimately responsible for medication therapy, providers are able to order a medication from an existing home medication list in [facility] via the "Reconcile Routine" prior to Confirmation of that medication by applications support specialist. Such practice is discouraged except when the physician, in their clinical judgment, deems that a medical need exists for a medication without regard to previous use.
[2023-12-13] MEDS: HYDROcod/ACETAM 5/325 MG TABLET PO PRN (23:33)
--- NOTE | 2023-12-14 10:27 | Discharge Plan ---
Discharge Plan Problem Reviewed?: Yes Disposition: Home, Self Care Condition: Good Diet: Regular Activity Restrictions: No Restrictions Shower Restrictions: No Driving Restrictions: No Weight Bearing: Full Weight Instruction Topics: Vaginal After, Self Care, Nutrition No Smoking: If you smoke, Please STOP! Call for help. Follow-up with: Deann Navas CNM, ANISA [Provider Admit Priv/Credential] - 1 Week
--- NOTE | 2023-12-14 10:37 | DISCHARGE SUMMARY ---
Discharge Summary Condition at Discharge: Good Discharge Disposition: 01 Home, Self Care - HOSPITAL COURSE Hospital Course: Date of Admission: 12/11/2023 Date of Discharge: 12/14/2023 Diagnosis on admission: 1. 28yo @ 39.1wks gestation by LMP c/w 8.3wk U/S 2. Early labor 3. SROM x 2.5hrs 4. GBS POSITIVE 5. FHR Category I Diagnosis on Discharge 1. 28yo s/p 12/12/2023 @ 2129 2. PPD #2 3. 2nd degree perineal laceration 4. Exclusively . Physical exam: Normocephalic, atraumatic Heart RRR w/o M/G/R Lungs CTAB Normal uterine involution, FF below umbilicus Small/ scant rubra bleeding perineal discomfort. Bilateral LE's no edema Mood is good. Brief History: She is a patient of [facility] then [facility], who presented on 12/11/2023 following SROM @ 39+1 weeks gestation. GBS positive and adequately treated. Minimal Pitocin augmentation and epidural anesthesia for effective pain relief. Once labor onset, she progressed quickly to complete. She spontaneously delivered a viable male infant apgars 7 and 8 at 1 and 5 minutes respectively. EBL 350 ml. second degree perineal laceration with repair. weight: 3.07kg She has been doing well in her course. She is ambulating and tolerating a regular diet. She is urinating without difficulty and her lochia is normal. Her pain is well controlled without narcotic management. She describes ongoing RUQ discomfort unchanged from early second trimester. She will be discharged to home today on day 2 and encouraged IBU, tylenol and stool softeners PRN. She intends to follow up with [facility] in 1 week for telehealth. She has been given precautions to call if she has any new or worsening sx such as fevers, chills, abdominal pain, increasing bleeding, or foul smelling vaginal lochia. preeclamptic precautions reviewed as well. VZV: immune Rubella: immune Blood type: O+ - ALLERGIES Allergies/Adverse Reactions: Allergies Allergy/AdvReac Type Severity Reaction Status Date / Time No Known Drug Allergies Allergy Verified 12/12/23 00:04 - MEDICATIONS Home Medications: Ambulatory Orders Medication Instructions Recorded Confirmed 168/Iron/Folic/Omega3 1 each PO DAILY 12/13/23 12/13/23 [One-A-Day -1 Softgel] - LABS Result Diagrams: 12/12/23 00:30
[2023-12-14 11:32] VITALS: BP 125/60; O2SAT 99
--- NOTE | 2023-12-14 15:10 | Labor Flowsheet ---
Labor Flowsheet Datetime Report Generated by CPN: 12/14/2023 15:09 Datetime: 12/14/2023 11:18 VITAL SIGNS NBP Sys/Madhavi/Mean (mmHg): 125 : 60 : 74 Pulse: 67 Datetime: 12/13/2023 19:00 Stage of : Datetime: 12/13/2023 02:38 PAIN Pain Scale: 2 Pain Presence: Intermittent Pain Type: Cramping; Dull Pain Location: Abdomen; Back Pain Goal: 2 Pain Relief Measures: Comfort Measures Datetime: 12/13/2023 00:03 Respirations: 16 Temperature (C): 36.5 Temperature Route: Oral Datetime: 12/12/2023 22:17 Headache: Denies Datetime: 12/12/2023 21:29 Comments: Viable baby delivered vaginally' Datetime: 12/12/2023 21:22 Stage 2 Comments: small crown Datetime: 12/12/2023 21:14 Antibiotics: Ampicillin IV 1 Gm PATIENT CARE Oxygen Method: Room Air STAGE 2 Pushing: Coached on Pushing Pushing Position: Pushing with Contractions Pushing Progress: Descent with Pushing Datetime: 12/12/2023 21:08 MEDICATIONS Pitocin (milliunits): Started @ 2 Datetime: 12/12/2023 21:07 Pain Management: Epidural Notification Reason: Pain; Maternal Vital Sign Change Datetime: 12/12/2023 21:02 Contraction Comments: comfortable with ctx TEACHING Instructional Method: Verbal Labor/Induction: Labor Stages Teaching Comments: pushing Datetime: 12/12/2023 20:56 COMMUNICATION Communication: RN at Bedside Communication Comments: pt transferred to room 3102 Datetime: 12/12/2023 20:55 SpO2 (%): 99 LaborFlag: Labor Datetime: 12/12/2023 20:48 VAGINAL EXAM Dilatation (cm): 10.0 Effacement (%): 100 Station: 2 Exam by: A Yosef CNM Membrane Status: Ruptured Datetime: 12/12/2023 20:40 Monitor Interventions for UA: [place] Adjusted Provider Reviewed Strip: Yes Strip Reviewed by: Deann Yosef Plan of Care: Plan of Care Discussed Provider Notified (Name): Alimadinaia Yosef Datetime: 12/12/2023 20:30 Actions for Decelerations: Pitocin Off Category: Category I Datetime: 12/12/2023 20:15 MATERNAL ASSESSMENT Level of Consciousness: Alert Nausea/Vomiting: Denies Datetime: 12/12/2023 19:31 Pain Coping: Breathing Through Contractions Patient Position/Activity: Semi-Fowlers Comfort Measures: Breathing/Relaxation; Family Support ANESTHESIA Anesthesia Plans: Epidural Datetime: 12/12/2023 19:15 UTERINE ACTIVITY Monitor Mode: External Frequency (min): 6 Quality: Strong Duration (sec): 70-100 Pattern: Normal: <= 5 Contractions in 10 Minutes Resting Tone (Palpate): Relaxed ASSESSMENT A Monitor Mode: External US FHR Baseline Rate : 140 FHR Baseline Changes: No Baseline Change Variability: Moderate 6-25 bpm Accelerations: 15X15 Decelerations: Late; Variable Datetime: 12/12/2023 17:18 Monitor Interventions for FHR: Ultrasound Adjusted Datetime: 12/12/2023 17:03 Cervix, Consistency: Soft Cervix, Position: Midposition Vaginal Exam Comments: edema noted on rt side of cervix Datetime: 12/12/2023 16:26 Patient Care Comments: legs over peanut ball Datetime: 12/12/2023 13:41 I/O Interventions: Spears Cath Inserted Datetime: 12/12/2023 13:40 Vaginal Bleeding: Normal Show Datetime: 12/12/2023 12:15 Epidural Procedure Other: Pump Started Datetime: 12/12/2023 12:04 Epidural Procedure: Cath Placed Datetime: 12/12/2023 11:48 PROCEDURE TIME OUT Procedure Type: epidural Procedure Verify: Correct Patient Identity; Correct Side and Site are Marked; Accurate Procedure Co nsent Form; Agreement on Procedure to be Done; Correct Patient Position; Relevant Images and Results are Properly Labeled and Displayed; Addressed Need to Administer Antibiotics or Fluids for Irrigation ; Safety Precautions Based on Patient History or Medication Use Epidural Positioning: Sitting Datetime: 12/12/2023 11:46 Anesthesia Comments: at bedside Datetime: 12/12/2023 04:00 Connect Comments: Yosef ANDERSON updated on patient status, no new orders Datetime: 12/12/2023 01:58 Membranes Ruptured Date/Time: 12/11/2023 22:00 Membranes Rupture Method: Spontaneous Amniotic Fluid Color: Clear Amniotic Fluid Amount: Moderate Amniotic Fluid Odor: Normal
== END 2023-12-14 13:30 | disposition home or self-care (01) | DRG 807 ==
LOC: WFO 23:15 → FBP 23:16 → WFO 23:30 → FBP 23:30
PROVIDERS: ADMIT Nurse Practitioner Obstetrics & Gynecology; ATTEND Nurse Practitioner Obstetrics & Gynecology
PROC: 10E0XZZ Delivery of Products of Conception, External Approach (ICD-10-PCS; principal; 2023-12-12)
PROC: 0KQM0ZZ Repair Perineum Muscle, Open Approach (ICD-10-PCS; 2023-12-12)
DX: O70.1 Second degree perineal laceration during delivery (principal); Z37.0 Single live birth; O99.824 Streptococcus B carrier state complicating childbirth; Z3A.39 39 weeks gestation of pregnancy
CPT/HCPCS: 36415; 59409; 85025; 86850; 86900; 86901; A9270; J1200; J7120